=== PATIENT | female | born 1980 | race Caucasian/White ===

== ENCOUNTER → 2021-02-18 | Outpatient (CLI) | payer OTHER ==
[~2021-02-18] MED LIST: ISOVUE-370 76% 100ML VIAL As Ordered ONE
--- NOTE | 2021-02-18 13:20 | REP ---
INDICATION: INFERTILITY. COMPARISON: None. TECHNIQUE: The referring clinician catheterized the cervix and injected contrast. I performed fluoroscopy and obtained images. FINDINGS: The uterine cavity fills well with contrast with no contour abnormality or filling defect. There is passage of contrast through nondilated fallopian tubes bilaterally. There is free intraperitoneal spillage bilaterally indicating fallopian tube patency. IMPRESSION: Bilateral fallopian tube patency. Fluoroscopy time 1.9 minutes. <Electronically signed by Cahs Navarro > 02/18/21 [id number]
== END ==
LOC: M RADPRO 11:48
PROVIDERS: ATTEND Obstetrics & Gynecology
DX: N97.9 Female infertility, unspecified (principal)
CPT/HCPCS: 58340; 74740; Q9967

== ENCOUNTER → 2021-09-30 | Outpatient (CLI) | payer OTHER ==
[2021-09-30 09:41] LABS: ESTRADIOL 223.4 PG/ML; PROGESTERONE 45.09 NG/ML
== END ==
LOC: M LAB 07:13
PROVIDERS: ATTEND Obstetrics & Gynecology Reproductive Endocrinology
DX: Z31.49 Encounter for other procreative investigation and testing (principal)

== ENCOUNTER → 2021-10-07 | Outpatient (CLI) | payer OTHER ==
[2021-10-07 09:03] LABS: PROGESTERONE 8.34 NG/ML
== END ==
LOC: M LAB 07:29
PROVIDERS: ATTEND Obstetrics & Gynecology Reproductive Endocrinology
DX: Z32.00 Encounter for pregnancy test, result unknown (principal)

== ENCOUNTER → 2021-11-21 | Outpatient (CLI) | payer OTHER ==
[2021-11-21 09:27] LABS: ESTRADIOL 97.5 PG/ML; PROGESTERONE 41.18 NG/ML
== END ==
LOC: M LAB 07:00
PROVIDERS: ATTEND Obstetrics & Gynecology Reproductive Endocrinology
DX: Z31.49 Encounter for other procreative investigation and testing (principal)

== ENCOUNTER → 2021-12-02 | Outpatient (CLI) | payer OTHER ==
[2021-12-02 17:44] LABS: HCG, SERUM QUANTITATIVE < 1.0 MIU/ML
[2021-12-02 18:18] LABS: PROGESTERONE 12.24 NG/ML
== END ==
LOC: M LAB 16:37
PROVIDERS: ATTEND Obstetrics & Gynecology Reproductive Endocrinology
DX: Z32.00 Encounter for pregnancy test, result unknown (principal)

== ENCOUNTER → 2022-11-06 | Outpatient (CLI) | payer BC, OTHER ==
[2022-11-06 08:14] LABS: ESTRADIOL 1138.6 PG/ML
[2022-11-06 08:33] LABS: PROGESTERONE 51.8 NG/ML
== END ==
LOC: M LAB 07:10
PROVIDERS: ATTEND Obstetrics & Gynecology Reproductive Endocrinology
DX: Z31.49 Encounter for other procreative investigation and testing (principal)

== ENCOUNTER → 2022-11-13 | Outpatient (CLI) | payer BC, OTHER ==
[2022-11-13 08:21] LABS: HCG, SERUM QUANTITATIVE 58.1 MIU/ML (<4.2)
[2022-11-13 08:26] LABS: PROGESTERONE 50.58 NG/ML
== END ==
LOC: M LAB 07:33
PROVIDERS: ATTEND Obstetrics & Gynecology Reproductive Endocrinology
DX: Z32.00 Encounter for pregnancy test, result unknown (principal)

== ENCOUNTER → 2022-11-16 | Outpatient (CLI) | payer BC, OTHER ==
[2022-11-16 08:06] LABS: HCG, SERUM QUANTITATIVE 71.6 MIU/ML (<4.2)
[2022-11-16 08:10] LABS: THYROID STIMULATING HORMONE 2.77 uIU/ML (0.55-4.78)
[2022-11-16 08:11] LABS: ESTRADIOL 1497.2 PG/ML
== END ==
LOC: M LAB 07:10
PROVIDERS: ATTEND Obstetrics & Gynecology Reproductive Endocrinology
DX: O09.00 Supervision of pregnancy with history of infertility, unspecified trimester (principal); Z3A.00 Weeks of gestation of pregnancy not specified

== ENCOUNTER → 2022-11-18 | Outpatient (CLI) | payer BC, OTHER ==
[2022-11-18 08:06] LABS: HCG, SERUM QUANTITATIVE 82.5 MIU/ML (<4.2)
[2022-11-18 08:10] LABS: ESTRADIOL 863.8 PG/ML
[2022-11-18 08:30] LABS: PROGESTERONE 53.21 NG/ML
== END ==
LOC: M LAB 07:13
PROVIDERS: ATTEND Obstetrics & Gynecology Reproductive Endocrinology
DX: O09.00 Supervision of pregnancy with history of infertility, unspecified trimester (principal)

== ENCOUNTER 2022-11-20 15:36 | Emergency (ER) | payer BC, OTHER ==
[~2022-11-20] VITALS: Ht 170.2 cm; Wt 67.1 kg
[2022-11-20 15:36] VITALS: BP 149/80; TEMP 99.2; O2SAT 100
[2022-11-20] MEDS ORDERED: LEVO25TA5 (16:07)
[2022-11-20] MEDS ORDERED: PRED5TA (16:07)
[2022-11-20] MEDS ORDERED: PROG50IN4 (16:07)
[2022-11-20] MEDS ORDERED: PROG1CAP9 (16:07)
[2022-11-20] MEDS ORDERED: ESTR2TAB3 (16:07)
== END 2022-11-20 21:30 | disposition left against medical advice (07) ==
LOC: M ED 15:36
DX: Z53.21 Procedure and treatment not carried out due to patient leaving prior to being seen by health care provider (principal)

== ENCOUNTER → 2022-11-20 | Outpatient (CLI) | payer BC, OTHER ==
[~2022-11-20] MED LIST changes: +ESTR2TAB3; -ISOVUE-370 76% 100ML VIAL As Ordered ONE; +LEVO25TA5; +PRED5TA; +PROG1CAP9; +PROG50IN4
[2022-11-20 14:26] LABS: HCG, SERUM QUANTITATIVE 107.4 MIU/ML (<4.2)
[2022-11-20 14:31] LABS: PROGESTERONE 59.02 NG/ML
[2022-11-20 14:41] LABS: ESTRADIOL 2602.6 PG/ML
== END ==
LOC: M PLALAB 10:59
PROVIDERS: ATTEND Obstetrics & Gynecology Reproductive Endocrinology
DX: O02.81 Inappropriate change in quantitative human chorionic gonadotropin (hCG) in early pregnancy (principal)

== ENCOUNTER → 2022-11-20 | Outpatient (CLI) | payer BC, OTHER | LOC: M WHC 10:06 | PROVIDERS: ATTEND Obstetrics & Gynecology Reproductive Endocrinology | DX: O02.81 Inappropriate change in quantitative human chorionic gonadotropin (hCG) in early pregnancy (principal) ==

== ENCOUNTER → 2022-11-23 | Outpatient (CLI) | payer BC, OTHER | LOC: M WHC 09:32 | PROVIDERS: ATTEND Obstetrics & Gynecology Reproductive Endocrinology | DX: Z32.01 Encounter for pregnancy test, result positive (principal) ==

== ENCOUNTER → 2022-11-23 | Outpatient (CLI) | payer BC, OTHER ==
[2022-11-23 07:55] LABS: HCG, SERUM QUANTITATIVE 238.8 MIU/ML (<4.2)
[2022-11-23 08:00] LABS: PROGESTERONE 57.34 NG/ML
== END ==
LOC: M LAB 07:12
PROVIDERS: ATTEND Obstetrics & Gynecology Reproductive Endocrinology
DX: Z32.01 Encounter for pregnancy test, result positive (principal)

== ENCOUNTER → 2022-11-25 | Outpatient (CLI) | payer BC, OTHER ==
[2022-11-25 11:31] LABS: HCG, SERUM QUANTITATIVE 286.3 MIU/ML (<4.2)
[2022-11-25 11:35] LABS: PROGESTERONE 47.96 NG/ML
== END ==
LOC: M RAD 10:33
PROVIDERS: ATTEND Obstetrics & Gynecology Reproductive Endocrinology
DX: N83.291 Other ovarian cyst, right side (principal)

== ENCOUNTER → 2022-11-27 | Outpatient (CLI) | payer BC, OTHER ==
[2022-11-27 14:07] LABS: HCG, SERUM QUANTITATIVE 295.2 MIU/ML (<4.2)
[2022-11-27 14:13] LABS: ESTRADIOL 2352.2 PG/ML
[2022-11-27 14:39] LABS: PROGESTERONE 43.55 NG/ML
== END ==
LOC: M PLALAB 09:12
PROVIDERS: ATTEND Obstetrics & Gynecology Reproductive Endocrinology
DX: Z32.00 Encounter for pregnancy test, result unknown (principal)

== ENCOUNTER → 2022-11-27 | Outpatient (CLI) | payer BC, OTHER | LOC: M WHC 08:04 | PROVIDERS: ATTEND Obstetrics & Gynecology Reproductive Endocrinology | DX: Z32.00 Encounter for pregnancy test, result unknown (principal) ==

== ENCOUNTER → 2022-12-02 | Outpatient (CLI) | payer BC, OTHER ==
[2022-12-02 10:29] LABS: HCG, SERUM QUANTITATIVE 199.8 MIU/ML (<4.2)
[2022-12-02 10:33] LABS: ESTRADIOL 1123.2 PG/ML; PROGESTERONE 55.61 NG/ML
== END ==
LOC: M PLALAB 08:53
PROVIDERS: ATTEND Obstetrics & Gynecology Reproductive Endocrinology
DX: O02.81 Inappropriate change in quantitative human chorionic gonadotropin (hCG) in early pregnancy (principal)

== ENCOUNTER → 2022-12-02 | Outpatient (CLI) | payer BC, OTHER | LOC: M WHC 07:40 | PROVIDERS: ATTEND Obstetrics & Gynecology Reproductive Endocrinology | DX: O02.81 Inappropriate change in quantitative human chorionic gonadotropin (hCG) in early pregnancy (principal) ==

== ENCOUNTER → 2022-12-09 | Outpatient (CLI) | payer BC, OTHER | LOC: M LAB 07:06 | PROVIDERS: ATTEND Obstetrics & Gynecology Reproductive Endocrinology | DX: O02.1 Missed abortion (principal) ==

== ENCOUNTER → 2022-12-16 | Outpatient (CLI) | payer BC, OTHER | LOC: M LAB 07:35 | PROVIDERS: ATTEND Obstetrics & Gynecology Reproductive Endocrinology | DX: O02.1 Missed abortion (principal) ==

== ENCOUNTER → 2023-01-12 | Outpatient (CLI) | payer BC, OTHER | LOC: M WHC 07:31 | PROVIDERS: ATTEND Obstetrics & Gynecology Reproductive Endocrinology | DX: Z31.83 Encounter for assisted reproductive fertility procedure cycle (principal); N97.9 Female infertility, unspecified ==

== ENCOUNTER → 2023-01-12 | Outpatient (CLI) | payer BC, OTHER ==
[2023-01-12 10:30] LABS: HCG, SERUM QUANTITATIVE < 2.6 MIU/ML (<4.2)
[2023-01-12 10:33] LABS: ESTRADIOL 31.1 PG/ML; FOLLICLE STIMULATING HORMONE 25.8 mIU/ML; THYROID STIMULATING HORMONE 2.494 uIU/ML (0.55-4.78)
[2023-01-12 10:34] LABS: LUTEINIZING HORMONE 9.4 mIU/ML; PROGESTERONE 0.42 NG/ML
== END ==
LOC: M PLALAB 08:16
PROVIDERS: ATTEND Obstetrics & Gynecology Reproductive Endocrinology
DX: Z31.83 Encounter for assisted reproductive fertility procedure cycle (principal)

== ENCOUNTER → 2023-01-18 | Outpatient (CLI) | payer BC, OTHER | LOC: M WHC 09:37 | PROVIDERS: ATTEND Obstetrics & Gynecology Reproductive Endocrinology | DX: Z31.83 Encounter for assisted reproductive fertility procedure cycle (principal) ==

== ENCOUNTER → 2023-01-18 | Outpatient (CLI) | payer BC, OTHER ==
[2023-01-18 14:06] LABS: ESTRADIOL 386.1 PG/ML; LUTEINIZING HORMONE 15.4 mIU/ML; PROGESTERONE 0.38 NG/ML
== END ==
LOC: M PLALAB 10:33
PROVIDERS: ATTEND Obstetrics & Gynecology Reproductive Endocrinology
DX: Z31.83 Encounter for assisted reproductive fertility procedure cycle (principal)

== ENCOUNTER → 2023-02-02 | Outpatient (CLI) | payer BC, OTHER ==
[2023-02-02 08:44] LABS: HCG, SERUM QUANTITATIVE 3.8 MIU/ML (<4.2)
[2023-02-02 08:50] LABS: PROGESTERONE 44.12 NG/ML
== END ==
LOC: M LAB 07:04
PROVIDERS: ATTEND Obstetrics & Gynecology Reproductive Endocrinology
DX: Z32.00 Encounter for pregnancy test, result unknown (principal)

== ENCOUNTER → 2023-09-15 | Outpatient (CLI) | payer BC, OTHER ==
[2023-09-15 08:33] LABS: BASO # 0.1 10^3/uL (0.0-0.2); BASO % 1.8 % (0.0-1.0); EOS # 0.1 10^3/uL (0.0-0.5); EOS % 4.2 % (0.0-3.0); HEMATOCRIT 35.1 % (36.0-47.0); LYMPH # 0.9 10^3/uL (1.5-5.0); LYMPH % 25.6 % (24.0-44.0); MEAN CORPUSCULAR HEMOGLOBIN 26.3 pg (27.0-33.0); MEAN CORPUSCULAR HGB CONC 31.3 g/dl (32.0-36.5); MEAN CORPUSCULAR VOLUME 83.8 fl (80.0-96.0); MONO # 0.3 10^3/uL (0.0-0.8); MONO % 9.6 % (2.0-8.0); NEUTROPHILS # 1.9 10^3/uL (1.5-8.5); NEUTROPHILS % 58.5 % (36.0-66.0); PLATELET COUNT, AUTOMATED 201 10^3/uL (150-450); RED BLOOD COUNT 4.19 10^6/uL (4.00-5.40); WHITE BLOOD COUNT 3.3 10^3/uL (4.0-10.0)
[2023-09-15 09:06] LABS: ALBUMIN 3.3 G/DL (3.2-5.2); ALKALINE PHOSPHATASE 35 U/L (46-116); ALT/SGPT 23 U/L (7.0-40); AST/SGOT 11 U/L (<34); BILIRUBIN,TOTAL 0.6 MG/DL (0.3-1.2); BLOOD UREA NITROGEN 12 MG/DL (9-23); CALCIUM LEVEL 8.6 MG/DL (8.5-10.1); CARBON DIOXIDE LEVEL 29 MMOL/L (20-31); CHLORIDE LEVEL 109 MMOL/L (98-107); CREATININE FOR GFR 0.68 MG/DL (0.55-1.30); GLOMERULAR FILTRATION RATE > 60.0 (>58); GLUCOSE, FASTING 90 MG/DL (60-100); POTASSIUM SERUM 4.1 MMOL/L (3.5-5.1); SODIUM LEVEL 139 MMOL/L (136-145); TOTAL PROTEIN 6.3 G/DL (5.7-8.2)
[2023-09-15 09:34] LABS: HIV 1&2 SCREEN NEGATIVE (NEGATIVE)
[2023-09-15 09:42] LABS: HEPATITIS C VIRUS ABY INDEX 0.03 INDEX (<0.8)
== END ==
LOC: M LAB 07:39
PROVIDERS: ATTEND Student in an Organized Health Care Education/Training Program
DX: Z76.89 Persons encountering health services in other specified circumstances (principal)

== ENCOUNTER → 2023-09-17 | Outpatient (CLI) | payer BC, OTHER ==
[2023-09-20 23:08] LABS: IgG P18 AB Absent (.); IgG P23 AB Absent (.); IgG P28 AB Absent (.); IgG P30 AB Absent (.); IgG P39 AB Absent (.); IgG P41 AB Absent (.); IgG P45 AB Absent (.); IgG P58 AB Absent (.); IgG P66 AB Absent (.); IgG P93 AB Absent (.); IgM P23 AB Present (.); IgM P39 AB Absent (.); IgM P41 AB Absent (.); LYME IgG WB INTERPRETATION Negative (.); LYME IgM WB INTERPRETATION Negative (.)
== END ==
LOC: M LAB 07:40
PROVIDERS: ATTEND Student in an Organized Health Care Education/Training Program
DX: Z91.89 Other specified personal risk factors, not elsewhere classified (principal)

== ENCOUNTER → 2023-10-27 | Outpatient (REF) | payer BC, OTHER | LOC: M SFHCPLAZ 12:49 | PROVIDERS: ATTEND Student in an Organized Health Care Education/Training Program | DX: Z12.4 Encounter for screening for malignant neoplasm of cervix (principal) ==